=== PATIENT | male | born 1940 ===

== ENCOUNTER 2019-08-09 08:27 | Emergency (ER) | payer MEDICARE, MEDICAID, SELFPAY ==
--- NOTE | ~2019-08-09 | CT_ITS ---
EXAMINATION: CT cervical spine wo con EXAM DATE: 08/09/2019 10:29 INDICATION: Fall, head injury. TECHNIQUE: Spiral CT of the cervical spine was performed without contrast. Axial images were reviewe d. Coronal and sagittal reformatted images were also reviewed. The dose-length product (DLP) for thi s examination was 291.07 mGy-cm. The exposure was tailored according to patient size (auto mA exposu re control), and iterative reconstruction (ASIR) was used as additional dose reduction technique. ere is no prior study for comparison. 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 There is no evidence o f acute cervical fracture. The odontoid process is intact. Pre-dens space is normal. Prevertebral soft tissue is normal. There are no soft tissue abnormalities identified. There is no disc space wi dening or traumatic vertebral body subluxation suspected. A detailed level by level evaluation of spo ndylosis can be added as addendum if requested. IMPRESSION: 1. No acute cervical fracture. 2. Advanced spondylosis. Reviewed, dictated and finalized at location A. [facility] BL[facility]ER
--- NOTE | ~2019-08-09 | CT_ITS ---
EXAMINATION: CT brain wo con DATE: 08/09/2019 10:29 INDICATION: Head injury. TECHNIQUE: Computed tomography (CT) of the head was performed without intravenous contrast. The mA wa s adjusted according to patient size. Iterative reconstruction technique was employed. The dose-lengt h product was 605.33 mGy-cm. COMPARISON: Head CT 08/04/2019 FINDINGS: There are scattered areas of low attenuation in the cerebral white matter. There is no intr acranial hemorrhage, acute infarction, or abnormal intracranial mass lesion. The ventricles are aida l in size. There is a 2.3 x 4.4 x 1.2 cm mass with peripheral and internal calcifications involving t he left frontal and ethmoid sinuses and left nasal cavity with involvement of the cribriform plate. T here are likely changes of ocular lens replacement surgeries. The mastoid air cells are normal. IMPRESSION: 1. Unchanged mild nonspecific cerebral white matter disease, which likely represents chronic small ve ssel ischemic disease. 2. Unchanged 4.4 cm mass involving the left frontal and ethmoid sinuses and left nasal cavity. The di fferential diagnosis includes ossifying fibroma, osteoma, fibrous dysplasia, and less likely chondros arcoma or osteosarcoma. Reviewed, dictated and finalized at location A. [employer] IMPRESSION: 1. Unchanged mild nonspecific cerebral white matter disease, which likely repre sents chronic small vessel ischemic disease. 2. Unchanged 4.4 cm mass involving the left frontal and ethmoid sinuses and lef t nasal cavity. The differential diagnosis includes ossifying fibroma, osteoma, fibrous dysplasia, and less likely chondrosarcoma or osteosarcoma.
[2019-08-09 08:39] VITALS: BP 119/73; PULSE 79; RESP 18; TEMP 36.7; O2SAT 96
--- NOTE | 2019-08-09 09:08 | ED.FALL ---
HPI - Fall General Chief Complaint: Fall Stated Complaint: fall Time Seen by Provider: 08/09/19 09:30 Source: patient, family and RN notes reviewed Mode of arrival: EMS Limitations: no limitations History of Present Illness HPI Narrative: A 78 y/o male presents to the ED, via EMS from [facility], with c/o fall. Pt states that today he dropped his phone on the floor and reached down to get it and fell. He notes that he hit his head on the floor. Pt reports dizziness, lightheadedness, trouble writing, blurry vision, HI, neck pain, RAMIREZ, and constipation. He adds that the trouble writing started 2 days ago. The patient has a PMHx of bipolar, dementia, Alzheimer's, and schizophrenia, but his family member states that he does not have those things. His family member adds that until 2 weeks ago, he was not diagnosed with the bipolar, schizophrenia, dementia, and Alzheimer's. The pt has been falling for the past 2 weeks and his family member states that it is due to the Mirtazapine and Risperdal that he has been on for 6 weeks. The pt was seen at [facility] on 08/02/19 and at [facility] on 08/04/19 for a similar fall. He was also seen at [facility] yesterday and was scheduled to see a psychiatrist on 08/15/19. The patient's family member reports that they are only here to get the patient to see a psychiatrist immediately, and they do not want any repeat testing because their insurance will not cover it. The family member states that in April 2017 the patient was diagnosed with bladder cancer, and had surgery to remove the cancer. After the surgery, the pt has been susceptible to frequent UTI's and becomes psychotic. The family member reports that when he has a UTI is is given lithium and Macrobid. complaint: fall Onset (ago): week(s) (2) Fall from: standing Place fall occurred: group home/SNF (Assisted living) Context: tripped/slipped and history of frequent falls Location of injury: head Associated symptoms (after fall): headache, neck pain, lightheaded and other (Dizziness, trouble writing, blurry vision, constipation, HI) Related Data Home Medications Medication Instructions Recorded Confirmed clopidogrel [Plavix] 75 mg PO DAILY 08/04/19 08/04/19 cyclosporine [Restasis] 08/04/19 famotidine [Pepcid] BID 08/04/19 levothyroxine 25 mcg PO DAILY 08/04/19 08/04/19 mirtazapine [Remeron] 7.5 mg PO DAILY 08/04/19 08/04/19 risperidone [Risperdal] 2 mg PO HS 08/04/19 08/04/19 Allergies Allergy/AdvReac Type Severity Reaction Status Date / Time No Known Allergies Allergy Verified 08/04/19 18:05 Review of Systems Review of Systems: Narrative: All systems reviewed & are unremarkable except as noted in HPI and below Constitutional: Constitutional: Reports other (Trouble writing) Eyes: Eyes: Reports blurry vision ENT: Reports dizziness Gastrointestinal: Gastrointestinal: Reports constipation Musculoskeletal: Musculoskeletal: Reports neck pain Neurologic: Reports dizziness, Reports headache(s) and Reports other (Lightheadedness, HI) [facility] Past Medical History Medical History Alzheimers disease (Acute) Anxiety (Acute) Bilateral cataracts (Acute) Bladder cancer (Acute) Dementia (Acute) History of bipolar disorder (Acute) Schizophrenia (Acute) UTI (urinary tract infection) (Acute) Surgical History Surgical History (Updated 08/09/19 @ 11:23 by Vanessa Mishra) H/O bilateral cataract extraction (Acute) History of bladder surgery (Acute) History of tonsillectomy (Acute) Family History Family History Sibling Family history of mental disorder Patient's brother is in good health Father Family history of alcoholism, Onset Age: 71 Mother Family history of alcoholism, Onset Age: 61 Social History Social History Smoking status: Never
--- NOTE | 2019-08-09 10:42 | PC.NURSE ---
Beba from [facility] called to check on patient; advised currently waiting for CT results.
[2019-08-09 10:53] VITALS: BP 107/55; PULSE 70; RESP 12; O2SAT 96
[2019-08-09 11:05] LABS: Add Urine Microscopic? YES; Appearance Urine Clear (Clear); Bilirubin Urine Negative (Negative); Blood Urine Negative (Negative); Color Urine Yellow (Yellow); Glucose Urine UA Negative (Negative); Ketones Urine Trace mg/dL (Negative); Leukocyte Esterase Ur Negative LEU/UL (Negative); Mucus Urine Few /lpf; Nitrate Urine Negative (Negative); Protein Urine 1+ mg/dL (Negative); Squamous Epithelial Cell Urine Rare /hpf (Few); Urobilinogen Urine Negative mg/dL (<2.0)
[2019-08-09 12:13] VITALS: RESP 18
[2019-08-09 12:14] VITALS: BP 133/74; PULSE 73; RESP 16; O2SAT 97
[2019-08-09] MEDS: ACETAMINOPHEN 500 MG TABLET 1000 MG PO (13:00)
[2019-08-09 13:19] VITALS: BP 111/75; PULSE 74; RESP 18; O2SAT 97
== END 2019-08-09 13:19 ==
PROVIDERS: Emergency Provider Emergency Medicine
DX: S09.90XA Unspecified injury of head, initial encounter (principal); W19.XXXA Unspecified fall, initial encounter; Z91.81 History of falling; G30.9 Alzheimer's disease, unspecified; F02.80 Dementia in other diseases classified elsewhere, unspecified severity, without behavioral disturbance, psychotic disturbance, mood disturbance, and anxiety; H26.9 Unspecified cataract; F31.9 Bipolar disorder, unspecified; F20.9 Schizophrenia, unspecified; Z85.51 Personal history of malignant neoplasm of bladder
CPT/HCPCS: 70450; 72125; 81001; 87086; 99284; A9270